=== PATIENT | female | born 1985 | race Caucasian/White ===

== ENCOUNTER 2021-10-20 07:35 | Emergency (ER) | payer OTHER ==
[~2021-10-20] VITALS: Ht 154.9 cm; Wt 62.6 kg
[2021-10-20 07:40] VITALS: BP 124/69
--- NOTE | 2021-10-20 07:51 | NUR ---
PATIENT BIB [facility]. PATIENT EXAMINED BY DR. BERG. PATIENT MEDICALLY CLEARED AND RELEASED IN CUSTODY IN STABLE CONDITION. ORIGINAL PRE-BOOK FORM GIVEN TO OFFICER ROS[facility].
== END 2021-10-20 07:51 ==
LOC: MED 07:35
DX: F10.20 Alcohol dependence, uncomplicated (principal); V89.2XXA Person injured in unspecified motor-vehicle accident, traffic, initial encounter; Y93.89 Activity, other specified; Y92.89 Other specified places as the place of occurrence of the external cause; Y99.8 Other external cause status
CPT/HCPCS: 99283